=== PATIENT | male | born 1995 | race Caucasian/White ===

== ENCOUNTER 2017-06-08 15:47 | Emergency (ER) | payer BC ==
[2017-06-08] MEDS ORDERED: Ibuprofen TAB* 600 MG PO ONE (16:12)
[2017-06-08 16:21] VITALS: BP 147/71
--- NOTE | 2017-06-08 16:36 | UC ---
Cardiac HPI - HPI Summary HPI Summary: ABOUT A WEEK OF RIGHT SIDED/MIDSTERNAL DULL CHEST PAIN. NOT WORSE WITH EXERTION. NO SOB, SWEATS OR NAUSEA. NO RADIATION OF THE PAIN. PT SEEMS QUITE ANXIOUS ABOUT HIS SYMPTOMS BUT DENIES ANY H/O ANXIETY. IS A COLLEGE STUDENT AT [employer]. NO FAMILY H/O CARDIAC DISEASE. DRINKS 2-4 CUPS OF COFFEE PER DAY. HAS BEEN SLEEPING WELL. PAIN IS CONSTANT BUT PT CAN IGNORE IT AND GO ABOUT HIS DAILY ACTIVITIES. FEELS WORSE WHEN HE THINKS ABOUT IT. - History of Current Complaint Chief Complaint: UCChestPain Stated Complaint: CHEST PAIN Time Seen by Provider: 06/08/17 15:55 Hx Obtained From: Patient Onset/Duration: Gradual Onset, Lasting Days, Still Present Timing: Constant Initial Severity: Moderate Current Severity: Mild Pain Intensity: 2 Chest Pain Location: Mid Sternal, Right Anterior Character: Dull/Aching Aggravating: Nothing Alleviating: Nothing Associated Signs & Symptoms: Positive: Chest Pain. Negative: Vision Changes, Anxiety, Weakness, Dizziness, SOB, Syncope, Fever, Diaphoresis, Nausea/Vomiting , Palpitations, Cough, Back Pain, Abdominal Pain - Allergy/Home Medications Allergies/Adverse Reactions: Allergies Allergy/AdvReac Type Severity Reaction Status Date / Time No Known Allergies Allergy Verified 06/08/17 16:05 Home Medications: Home Medications NK [No Home Medications Reported] 06/08/17 [History Confirmed 06/08/17] PMH/Surg Hx/FS Hx/Imm Hx Previously Healthy: Yes - Surgical History Surgical History: None - Family History Known Family History: Negative: Cardiac Disease, Hypertension, Diabetes - Social History Alcohol Use: Daily Alcohol Amount: 4-5 drinks per week Substance Use Type: None Smoking Status (MU): Never Smoked Tobacco Review of Systems Constitutional: Negative Skin: Negative Respiratory: Negative Cardiovascular: Chest Pain Gastrointestinal: Negative Genitourinary: Negative Psychological: Negative All Other Systems Reviewed And Are Negative: Yes Physical Exam Triage Information Reviewed: Yes Appearance: Well-Appearing, No Pain Distress, Well-Nourished Vital Signs: Initial Vital Signs Temp 98.1 F 06/08/17 16:05 Pulse 68 06/08/17 16:05 Resp 16 06/08/17 16:05 BP 147/71 06/08/17 16:05 Pulse Ox 100 06/08/17 16:05 Vital Signs Reviewed: Yes Eyes: Positive: Conjunctiva Clear ENT: Positive: Hearing grossly normal, Pharynx normal, TMs normal Neck: Positive: Supple, Nontender, No Lymphadenopathy Respiratory Exam: Normal Cardiovascular Exam: Normal Abdomen Description: Positive: Nontender, Soft Musculoskeletal: Positive: No Edema Neurological: Positive: Alert Psychological: Positive: Age Appropriate Behavior Skin: Negative: rashes Diagnostics - Radiology CHEST XRAY Xray Interpretation: No Acute Changes Radiology Interpretation Completed By: ED Physician - EKG Cardiac Rate: NL - 74BPM Cardiac Rhythm: Sinus: Normal Ectopy: None ST Segment: Normal Re-Evaluation - Re-Evaluation First Eval Re-Evaluation Time: 17:05 - NO CHANGE AFTER IBUPROFEN 600MG Change: Unchanged - Clinical Impression Provider Diagnoses: NON CARDIAC CHEST PAIN Discharge - Discharge Plan Condition: Stable Disposition: HOME Patient Education Materials: Noncardiac Chest Pain (ED), Chest Wall Pain (ED) Referrals: Jami Riley MD [Medical Doctor] - If Needed [facility] [Medical Doctor] - If Needed Additional Instructions: LABS DRAWN TODAY INCLUDE BLOOD COUNT, METABOLIC PANEL AND THYROID TEST. CHEST XRAY UNREMARKABLE ON MY INITIAL INTERPRETATION. WE WILL CALL YOU IF RADIOLOGY READ DIFFERS. EKG UNREMARKABLE. YOUR SYMPTOMS DO NOT SEEM CARDIAC IN ETIOLOGY. CONSIDER STRESS VS CAFFEINE INTAKE VS. RELATIVE DEHYDRATION. GO TO THE ER WITHOUT FAIL IF YOU DEVELOP WORSENING CHEST PAIN, SHORTNESS OF BREATH, NAUSEA, SWEATS, DIZZINESS OR ANY OTHER CONCERNING SYMPTOMS.
--- NOTE | 2017-06-08 17:28 | RAD ---
INDICATION: Chest pain COMPARISON: None TECHNIQUE: PA and lateral views of the chest were obtained. FINDINGS: The heart and mediastinum are normal in size and contour. The lungs are grossly clear. There is no evidence of large pleural effusion. Visualized bones are normal for the patient's age. There is no radiographic evidence of free air beneath the diaphragm IMPRESSION: No radiographic evidence of acute cardiopulmonary disease.
[2017-06-09 14:04] LABS: Hematocrit 40 % (42-52); Hemoglobin 14.2 g/dl (14.0-18.0); Mean Corpuscular HGB Conc 35 g/dl (31-36); Mean Corpuscular Hemoglobin 30 pg (27-31); Mean Corpuscular Volume 86 fL (80-94); Mean Platelet Volume 9 um3 (7.4-10.4); Red Blood Count 4.68 10^6/ul (4.0-5.4); Red Cell Distribution Width 13 % (10.5-15); White Blood Count 7.6 10^3/ul (3.5-10.8)
[2017-06-09 14:19] LABS: Albumin 4.6 g/dL (3.2-5.2); BUN/Creatinine Ratio 12.1 (8-20); Calcium 9.8 mg/dL (8.6-10.3); EGFR African American 103.2 (>60); EGFR Non-African American 80.3 (>60); Globulin 2.4 g/dL (2-4); Potassium 4.6 mmol/L (3.5-5.0); Total Bilirubin 1.1 mg/dL (0.2-1.0)
[2017-06-09 14:25] LABS: TSH (Thyroid Stimulating Horm) 1.54 mcIU/mL (0.34-5.60)
== END 2017-06-08 17:15 | disposition home or self-care (01) ==
LOC: UCEAST 15:47
DX: R07.89 Other chest pain (principal)
CPT/HCPCS: 36415; 71020; 80053; 84443; 85025; 93005; 99202; A9270-GY; G0463